=== PATIENT | male | born 1990 | race Caucasian/White ===

== ENCOUNTER 2016-12-09 15:52 | Emergency (ER) | payer OTHER ==
[~2016-12-09] VITALS: Ht 167.6 cm; Wt 101.3 kg
[2016-12-09 16:38] LABS: EOSINOPHIL (%) 0.5 % (0-5); EOSINOPHIL COUNT 0.1 K/uL (0-0.3); HEMATOCRIT 42.9 % (38.0-50.0); IMMATURE GRANULOCYTE (%) 0.4 % (0.0-0.7); INSTRUMENT ABS NEUTROPHIL CT 5.9 K/uL; LYMPHOCYTE COUNT 2.3 K/uL (1.0-2.8); MCH 28.8 PG (29.0-34.0); MCHC 34.5 G/DL (30.0-36.0); MCV 83.6 FL (86-99); MEAN PLAT.VOLUME 8.2 uM^3 (9.0-12.4); MONOCYTE (%) 8.5 % (3-12); MONOCYTE COUNT 0.8 K/uL (0-0.8); NEUTROPHIL (%) 64.8 % (45-76); NEUTROPHIL COUNT 5.9 K/uL (1.8-6.4); PLATELET COUNT 232 K/uL (156-360); RBC DIS.WIDTH-CV 12.4 % (11.8-14.6); RBC DIS.WIDTH-SD 37.5 % (39-53); RED BLOOD COUNT 5.13 M/uL (4.00-5.50); WHITE BLOOD COUNT 9.2 K/uL (4.1-10.2)
[2016-12-09 16:57] LABS: CHLORIDE 106 mEq/L (99-109); MAGNESIUM 2.3 mg/dL (1.3-2.7); POTASSIUM 3.9 mEq/L (3.7-5.4); SODIUM 142 mEq/L (136-147)
[2016-12-09 16:58] LABS: GLUCOSE 58 mg/dL (70-99)
[2016-12-09 17:00] LABS: ANION GAP 10 MEQ/L (2-14)
[2016-12-09 17:02] LABS: GFR ESTIMATE (CALCULATED) > 59 mL/min/
[2016-12-09 17:03] LABS: UREA NITROGEN (BUN) 14 mg/dL (9-23)
[2016-12-09 19:02] LABS: POINT-OF-CARE METER ID UU13113800; POINT-OF-CARE USER ID BHSJLM2
[2016-12-09 19:25] VITALS: BP 112/66
== END 2016-12-09 19:26 | disposition home or self-care (01) ==
LOC: EME → EDBD 15:52 → EME 19:26
PROVIDERS: Physician Assistant
DX: R55 Syncope and collapse (principal); I95.1 Orthostatic hypotension; J45.909 Unspecified asthma, uncomplicated; Z72.0 Tobacco use
CPT/HCPCS: 71010; 80048; 82948; 83735; 85025; 93005; 99281; 99285; J7030